=== PATIENT | male | born 1965 | race Caucasian/White ===

== ENCOUNTER 2019-12-15 11:00 | Inpatient (IN) ==
[2019-12-15] MEDS ORDERED: ASPIRIN PO ONE (11:12)
[2019-12-15] MEDS ORDERED: ASPIRIN PR ONE (11:12)
[2019-12-15] MEDS ORDERED: NS 1,000 ML IV ONE ×2 (11:24→13:04)
[2019-12-15] MEDS ORDERED: ZOFRAN IV ONE (11:24)
[2019-12-15] MEDS ORDERED: ATIVAN IV ONE (11:30)
[2019-12-15 11:36] LABS: BASO# 0.02 X1000 (0.0-0.2); BASO% 0.2 % (0.0-0.8); EOS# 0.13 X1000 (0.0-0.7); EOS% 1.2 % (0.0-10.0); HEMATOCRIT 43.3 % (42.0-52.0); HEMOGLOBIN 15.3 g/dL (14.0-18.0); IMM GRAN# 0.01 X1000 (0.0-0.04); IMM GRAN% 0.1 % (0.0-0.5); LYMPH# 1.73 X1000 (1.2-3.4); LYMPH% 16.1 % (20.5-51.1); MCH 29.1 PG (27-31); MCHC 35.3 g/dL (33-37); MCV 82.3 FL (81-99); MONO# 0.76 X1000 (0.11-0.59); MONO% 7.1 % (1.7-9.3); MPV 9.8 FL (7.4-10.4); NEUT# 8.12 X1000 (1.4-6.5); NEUT% 75.3 % (42.2-75.2); PLT 289 X1000 (130-400); RBC 5.26 XMIL (4.7-6.1); RDW 12.8 % (11.5-14.5); WBC 10.77 X1000 (4.8-10.8)
[2019-12-15 11:58] LABS: INR 1.2; PROTIME 15.8 Seconds (11.0-16.0)
[2019-12-15 11:59] LABS: PTT 32.3 Seconds (22.3-41.8)
[2019-12-15 12:07] LABS: AGAP 12; ALBUMIN 4.3 g/dL (3.5-5.0); ALKALINE PHOSPHATASE 61 U/L (32-122); BUN 13 mg/dL (8-22); CHLORIDE 106 mmol/L (98-107); CK PROFILE 72 U/L (24-204); COSMO 285; CREATININE 0.9 mg/dL (0.7-1.2); ESTIMATED GFR > 60; GLUCOSE 161 mg/dL (70-104); GOT 13 U/L (10-34); GPT 23 U/L (10-44); POTASSIUM 4.2 mmol/L (3.5-5.1); SODIUM 141 mmol/L (136-145); TCO2 22 mmol/L (25-35); TOTAL PROTEIN 6.2 g/dL (6.3-8.3)
--- NOTE | 2019-12-15 12:16 | Diag Imaging Result Doc PS360 ---
EXAM: CHEST-PORTABLE HISTORY: CP TECHNIQUE: Single view COMPARISON: None. FINDINGS: Poor inspiratory effort. The heart is not enlarged. The vessels are not distended. There are no infiltrates. No effusion identified. IMPRESSION: Negative exam. Electronically signed by Rosendo An 12/15/2019 12:13 PM
[2019-12-15] MEDS ORDERED: PROTONIX IV ONE (12:18)
[2019-12-15] MEDS ORDERED: LOVENOX 1 MG/KG SUBQ ONE (12:18)
[2019-12-15] MEDS ORDERED: LOPRESSOR IV ONE ×2 (12:18→13:04)
[2019-12-15] MEDS ORDERED: PEPCID IV ONE (12:18)
[2019-12-15] MEDS ORDERED: SODIUM CHLORIDE 0.9% INJ ONE ×2 (12:18)
[2019-12-15] MEDS ORDERED: LOVENOX SUBQ ONE (13:25)
--- NOTE | 2019-12-15 13:34 | EKG Report ---
Test Performed on : 12/15/2019 11:06:39 AM Test Reason : A-Fib RVR Blood Pressure : / mmHG Vent. Rate : 161 BPM Atrial Rate : 101 BPM P-R Int : 000 ms QRS Dur : 088 ms QT Int : 284 ms P-R-T Axes : 000 -24 094 degrees QTc Int : 464 ms Atrial fibrillation. with rapid ventricular response. Abnormal QRS-T angle, consider primary T wave abnormality Abnormal ECG No previous ECGs available Unconfirmed Result
[2019-12-15] MEDS ORDERED: CORDARONE 360 MG/D5W 360 MG/200 ML IV.SOLN IV ONE (13:53)
[2019-12-15] MEDS ORDERED: ZOFRAN IV PRN (13:55)
[2019-12-15] MEDS ORDERED: NEO-SYNEPHRINE 50 MG in NS 250 ML IV SCH (14:00)
--- NOTE | 2019-12-15 15:30 | HISTORY AND PHYSICAL ---
CHIEF COMPLAINT: Chest pain and "feeling bad all over." HISTORY OF PRESENT ILLNESS: This is a 54-year-old gentleman with a history of diabetes mellitus and hypertension who presented to the emergency room complaining of chest pain that started about 3 a.m. He states that when he woke up, he just was not feeling right. He did have a pain in the left side of his chest. He develops shortness of breath with any activity as well as chest fullness, prompting his presentation to the emergency room. He was found to be in atrial fibrillation with rapid ventricular response with heart rates in the 160s and blood pressures that were initially in the 120s but did drop to the 80s to 90s. Mr. Hernandez does have a history of CVA. He states he has no residual from this. He denies a prior diagnosis of atrial fibrillation, but on questioning the patient, he does state that he has had episodes just like his presentation today, where he would be very weak, very short of breath with any exertion. They lasted varying amounts of time. He has never sought help during this time. PAST MEDICAL HISTORY: Diabetes mellitus, hypertension, CVA, status post 5 years ago. SOCIAL HISTORY: He denies any alcohol, tobacco, or illicit drug use. ALLERGIES: No known drug allergies. HOME MEDICATIONS: A list will be obtained by the nursing staff and once verified will review and restart as appropriate. REVIEW OF SYSTEMS: Discussed with patient with pertinent positives stated in the HPI. He denied any syncope or dizziness, any palpitations any productive cough, any fevers or chills, any nausea, vomiting, diarrhea, constipation, any black or bloody vomitus or stools, any hematuria, dysuria, frequency or urgency. PHYSICAL EXAMINATION: GENERAL: This is a 54-year-old gentleman who is lying on the stretcher in the emergency room in no distress. VITAL SIGNS: Blood pressure is 86/63 with a heart rate of 140, respirations are 20, temperature is 97.1 degrees with O2 saturations 98 to 100 percent. EYES: Pupils are equal, round, react to light. EOMs are intact. Sclerae anicteric. HEENT: Head is normocephalic, atraumatic. Mucous membranes are moist. NECK: Supple with trachea midline. CARDIOVASCULAR: Irregularly irregular rate and rhythm. S1 and S2 appreciated. He has no lower extremity edema. Peripheral pulses are palpable x4 extremities. Calves are nontender bilateral. PULMONARY: Breath sounds are clear with no increased work of breathing noted. Chest rises and falls symmetrically with respiration. Chest wall is nontender to palpation. GASTROINTESTINAL: Abdomen is soft, nontender, nondistended with bowel sounds in all 4 quadrants. NEUROLOGIC: He is alert and oriented x3. SKIN: Warm and dry. LABORATORY DATA: 1. WBC is 10.7 with hemoglobin 15.3, hematocrit 43.3, and platelets of 289,000. INR is 1.20. Sodium 141, potassium 4.2, BUN 13, creatinine 0.9 with a glucose of 161. Troponin T is 19 with a total CPK of 72. ProBNP is 1083. 2. Chest x-ray reveals negative exam. Heart is not enlarged. Vessels are not distended. There are no infiltrates. No effusion identified. 3. EKG reveals atrial fibrillation at a rate of 161. ASSESSMENT AND PLAN: 1. Atrial fibrillation with rapid ventricular response. 2. Hypotension. 3. History of hypertension. 4. History of diabetes mellitus. PLAN: The patient will be admitted and transferred to [facility] ICU. He will be placed on telemetry. The patient was discussed with Dr. Xander Valle in Cardiology, who recommended Lopressor 5 mg IV slowly as needed to control rate. Davi-Synephrine if pressors are needed. Lovenox a mg per kg b.i.d. continue to trend troponin and cardiac profile. CBC and CMP in the morning. Dr. Valle will be consulted, pattern blood glucose with sliding scale insulin. stat echocardiogram. Further treatments pending hospital course. Plan was discussed with Dr. Ceron. Dictated by SHON Landa for Veto Ceron MD cc: SHON Landa MD [facility]
--- NOTE | 2019-12-15 15:50 | ECHO REPORT ---
ORDER DATE: 12/15/2019 INTERPRETING PHYSICIAN: Dr. Joe Mcclain ECHOCARDIOGRAPHIC MEASUREMENTS: 1. Interventricular septum: 1.2 cm. 2. Left ventricular posterior wall: 1.2 cm. 3. Diastolic diameter: 4.5 cm. 4. Left atrium: 3.9 cm. 5. Aortic root: 3.5 cm. SUMMARY OF THE 2-DIMENSIONAL IMAGIN. Aortic valve leaflets were trileaflet. 2. Atrial fibrillation was noted. 3. Pulmonic valve was normal. There is mild pulmonary regurgitation. 4. Tricuspid valve was normal. 5. There is left atrial enlargement. 6. Mitral valve was normal. There is mild mitral regurgitation. 7. Mild tricuspid regurgitation. Peak velocity across the tricuspid valve was 2.1 m/sec. 8. Pulmonary artery systolic pressure of 28 mmHg. 9. Peak velocity across the aortic valve less than 2 m/sec. There is no aortic stenosis or regurgitation. 10. Normal left ventricular cavity size. Estimated ejection fraction of 55% to 60%. 11. Atrial fibrillation with tachycardia was noted. Heart rate varying from 90 to 130 beats per minute in atrial fibrillation. 12. There is no pericardial effusion. cc: MD Winter Khan CRNP
[2019-12-15] MEDS: HUMALOG (PARKWAY) SUBQ SCH ×2 (16:00→21:34)
[2019-12-15] MEDS ORDERED: NEO-SYNEPHRINE 50 MG in NS 250 ML IV PRN (16:40)
[2019-12-15] MEDS ORDERED: LOPRESSOR IV PRN (17:46)
[2019-12-15] MEDS: LOPRESSOR PO SCH (18:16)
[2019-12-15] MEDS ORDERED: LANOXIN IV ONE ×2 (18:36→21:30)
[2019-12-15] MEDS ORDERED: CORDARONE 540 MG in D5W 289.2 ML IV ONE (19:53)
--- NOTE | 2019-12-15 20:33 | HISTORY AND PHYSICAL ---
HISTORY OF PRESENT ILLNESS: Patient presented to the hospital with palpitations. Notes that it started sometime yesterday and he finally came to the ER today. He was noted to have heart rates in the 150s and 160s due to atrial fibrillation with rapid ventricular response. Blood pressures also were low in the 80s in and low 90s systolic. He has a history of diabetes, hypertension, CVA 5 to 6 years ago. We are going to admit him to the hospital, consult Cardiology, and attempt to rate control. cc: Veto Ceron MD
[2019-12-15] MEDS ORDERED: LOVENOX SUBQ SCH (21:00)
[2019-12-15] MEDS: LOVENOX SUBQ SCH (21:16)
[2019-12-16] MEDS: LOPRESSOR PO SCH ×3 (01:24→15:20)
[2019-12-16] MEDS: HUMALOG (PARKWAY) SUBQ SCH ×4 (07:28→20:33)
[2019-12-16] MEDS: PRILOSEC PO SCH (07:28)
[2019-12-16] MEDS ORDERED: MAGNESIUM SULFATE 2 GM/S.W.I. 2 GM/50 ML IVPB IV ONE (08:00)
[2019-12-16] MEDS: LOVENOX SUBQ SCH (08:30)
--- NOTE | 2019-12-16 08:30 | EKG Report ---
Test Performed on : 12/16/2019 08:16:19 AM Test Reason : Follow up heart rhyth, Blood Pressure : / mmHG Vent. Rate : 127 BPM Atrial Rate : 108 BPM P-R Int : 000 ms QRS Dur : 090 ms QT Int : 336 ms P-R-T Axes : 000 -29 002 degrees QTc Int : 488 ms Atrial fibrillation. with rapid ventricular response. Inferior infarct , age undetermined Abnormal ECG When compared with ECG of 15-DEC-2019 11:06, (Unconfirmed) Nonspecific T wave abnormality no longer evident in Lateral leads Confirmed by Wilbur KOLB, MSolomon Pool ([id number]) on 12/17/2019 4:34:36 PM
[2019-12-16 08:31] LABS: BASO# 0.02 X1000 (0.0-0.2); BASO% 0.2 % (0.0-0.8); EOS# 0.13 X1000 (0.0-0.7); EOS% 1.3 % (0.0-10.0); HEMATOCRIT 42.6 % (42.0-52.0); HEMOGLOBIN 14.8 g/dL (14.0-18.0); LYMPH% 18.5 % (20.5-51.1); MCH 29.7 PG (27-31); MCHC 34.7 g/dL (33-37); MCV 85.5 FL (81-99); MONO# 0.65 X1000 (0.11-0.59); MONO% 6.7 % (1.7-9.3); MPV 9.9 FL (7.4-10.4); NEUT# 7.14 X1000 (1.4-6.5); NEUT% 73.3 % (42.2-75.2); PLT 226 X1000 (130-400); RBC 4.98 XMIL (4.7-6.1); RDW 13.3 % (11.5-14.5); WBC 9.74 X1000 (4.8-10.8)
[2019-12-16 08:32] LABS: AGAP 10; ALB/GLOB RATIO 2.4; ALBUMIN 3.9 g/dL (3.5-5.0); ALKALINE PHOSPHATASE 59 U/L (32-122); BUN 14 mg/dL (8-22); CALCIUM 8.4 mg/dL (8.8-10.2); CHLORIDE 107 mmol/L (98-107); COSMO 287; ESTIMATED GFR > 60; GLUCOSE 119 mg/dL (70-104); GOT 12 U/L (10-34); GPT 24 U/L (10-44); POTASSIUM 4.2 mmol/L (3.5-5.1); SODIUM 143 mmol/L (136-145); TCO2 26 mmol/L (25-35); TOTAL BILIRUBIN 0.68 mg/dL (0.20-1.00); TOTAL PROTEIN 5.5 g/dL (6.3-8.3)
--- NOTE | 2019-12-16 10:00 | PROGRESS NOTE ---
DATE: 12/16/2019 INTERVAL HISTORY: Mr. Hernandez was admitted and was transferred from [facility] for management of atrial fibrillation. Overnight, he continued to have episodes of tachycardia and received intravenous digoxin. SUBJECTIVE: Mr. Hernandez is feeling better and he wanted to go home. I explained to him about pathophysiology of atrial fibrillation, symptoms, risk associated, as well as complication and history of stroke, and he wishes to stay back. Currently he denies any chest pain. He is not short of breath. He denies any palpitation. VITALS: On monitor his heart rate jumps between 90s to 150s, temperature 97.5 degrees, pulse 114, respiratory 17, blood pressure 128/98, saturating 97% on room air. PHYSICAL EXAMINATION: General: Not in acute distress. Oral cavity: Moist. Lungs: Air entry bilaterally equal. No wheeze, rhonchi, crackles. Heart: S1, S2 normal. No murmur or gallop. Abdomen: Soft, nontender. Neck: No jugular venous distention. Lower extremities: No lower extremity edema. Neurologic: He was alert and oriented x3. His strength appears 5/5 in both upper and lower extremities. No facial droop. LABS: Hemoglobin of 14.8, platelet of 226. BUN of 14, creatinine 1, blood glucose 105. His magnesium yesterday was 1.7. X-RAYS: EKG had atrial fibrillation with rapid ventricular response. ASSESSMENT AND PLAN: 1. Atrial fibrillation with rapid ventricular response. Echocardiogram did not have any mitral stenosis and normal ejection fraction. Continue oral metoprolol. Appreciate Cardiology recommendation about further management. I will also continue him on enoxaparin therapeutic dose for primary cerebrovascular accident prophylaxis. His CHADS2 Vasc score has been at least 4. I will keep him on nothing by mouth until further cardiovascular plans have been made. 2. Hypotension, likely due to atrial fibrillation at [facility], now resolved. I will stop the order for phenylephrine. He never required it. 3. Others: History of essential hypertension, history of insulin-dependent diabetes mellitus, history of hyperlipidemia. I will start him on atorvastatin. I will start him on his home canagliflozin and continue him on sliding scale insulin. DISPOSITION: I will monitor patient inside the ICU as I await further Cardiology recommendation. Plan of care discussed with the patient. His questions have been satisfactorily answered. cc: Juanpablo Quintanilla MD
--- NOTE | 2019-12-16 12:56 | CARDIOLOGY CONSULTATION ---
DATE: 12/16/2019 CHIEF COMPLAINT ON PRESENTATION: Chest pain, weakness, heart racing. HISTORY OF PRESENT ILLNESS: Mr. Hernandez is a 54-year-old, white male with a history of diabetes, hypertension, and previous CVA around 4 to 5 years ago. He had the onset of symptoms yesterday at work while walking around. He subsequently presented to the ER and was found to be in rapid atrial fibrillation. He has no history of this before, but has noted some heart racing occurring today. In addition, the patient noted in the last 48 to 72 hours having occasional episodes of rapid heart rates. He denies any bleeding issues. PAST MEDICAL HISTORY: Significant for: 1. Diabetes. 2. Hypertension. 3. Hyperlipidemia. 4. CVA occurring around 4 to 5 years ago. SOCIAL HISTORY: He does not smoke. He works at a local factory. FAMILY HISTORY: Significant for hypertension. REVIEW OF SYSTEMS: A 10-system review of systems is negative, except for those things mentioned in the HPI. PHYSICAL EXAMINATION: Vital Signs: The patient is afebrile. His heart rates are anywhere from the 90s to the 120s. His blood pressure is 131/105. General: He is in no acute distress. HEENT: Oropharynx is moist. Normal dentition. Eye examination shows pink conjunctivae, white sclerae. Neck: No obvious thyromegaly or thyroid tenderness. Cardiovascular: He sounds to be in an irregularly irregular rhythm. It is mildly tachycardic. He has no lower extremity edema. He has a normal JVP. Chest: Sounds clear bilaterally. He has no increased work of breathing. Abdomen: Soft, nontender, nondistended. He has no obvious organomegaly. Skin: Warm and dry throughout without any rashes. Neurological: He is moving all extremities well. He has no lateralizing deficits. PERTINENT DATA: His EKG on 12/15/2019 at 11:06 shows rapid atrial fibrillation, rate of 161 beats per minute. He has no ischemic changes. His subsequent EKG occurring on 12/16/2019 shows rapid atrial fibrillation, 127 beats per minute, nonspecific ST-T changes. He had an echocardiogram performed yesterday that showed a preserved ejection fraction, no significant wall motion abnormalities, no significant valvular defects. His chest x-ray demonstrates unremarkable exam. His lab data shows a white count of 9.7, hematocrit of 42, platelet count of 226,000. His sodium is 143, potassium 4.2, BUN 14, creatinine is 1. His proBNP is 1000. His high-sensitivity troponins were 17 and 19 respectively. His magnesium level was 1.7 yesterday. ASSESSMENT: Mr. Hernandez is a 54-year-old gentleman with new-onset atrial fibrillation. PLAN: He has a significant elevation in his CHADS score of 4 for hypertension, diabetes, and stroke. I will switch him over to Eliquis 5 b.i.d. Continue him on rate control. Will plan for RICARDO cardioversion in the morning, and he can likely be discharged after that time period. cc: Hood Sarah MD
[2019-12-16] MEDS: LOPRESSOR IV PRN ×2 (13:24→17:40)
[2019-12-16] MEDS: TYLENOL PO PRN (16:02)
[2019-12-16] MEDS: ELIQUIS PO SCH (20:54)
[2019-12-16] MEDS: MULTAQ PO SCH (20:54)
[2019-12-16] MEDS ORDERED: LIPITOR PO SCH (21:00)
[2019-12-16] MEDS ORDERED: INVOKANA PO SCH (21:00)
[2019-12-17] MEDS: LOPRESSOR PO SCH ×2 (03:26→08:28)
[2019-12-17] MEDS: HUMALOG (PARKWAY) SUBQ SCH (06:32)
[2019-12-17] MEDS: PRILOSEC PO SCH (06:33)
[2019-12-17 06:55] LABS: AGAP 12; BUN 12 mg/dL (8-22); CALCIUM 8.6 mg/dL (8.8-10.2); CHLORIDE 104 mmol/L (98-107); COSMO 281; CREATININE 0.9 mg/dL (0.7-1.2); ESTIMATED GFR > 60; GLUCOSE 106 mg/dL (70-104); MAGNESIUM 1.8 mg/dL (1.5-2.7); POTASSIUM 3.8 mmol/L (3.5-5.1); SODIUM 141 mmol/L (136-145); TCO2 25 mmol/L (25-35)
--- NOTE | 2019-12-17 07:51 | EKG Report ---
Test Performed on : 12/17/2019 07:03:19 AM Test Reason : afib Blood Pressure : / mmHG Vent. Rate : 081 BPM Atrial Rate : 081 BPM P-R Int : 158 ms QRS Dur : 108 ms QT Int : 394 ms P-R-T Axes : 048 -27 019 degrees QTc Int : 457 ms Normal sinus rhythm. Cannot rule out Anterior infarct , age undetermined Abnormal ECG When compared with ECG of 16-DEC-2019 08:16, (Unconfirmed) Sinus rhythm. has replaced Atrial fibrillation. Vent. rate has decreased BY 46 BPM Confirmed by Cristina Bowles MD ([id number]) on 12/17/2019 4:35:44 PM
[2019-12-17] MEDS ORDERED: XYLOCAINE 2% VISCOUS ONE (08:15)
[2019-12-17] MEDS ORDERED: XYLOCAINE 4% TOPICAL SOLUTION ONE (08:16)
[2019-12-17] MEDS: MULTAQ PO SCH (08:29)
[2019-12-17] MEDS: ELIQUIS PO SCH (08:29)
[2019-12-17] MEDS: TYLENOL PO PRN (08:29)
[2019-12-17 10:12] VITALS: BP 147/96
--- NOTE | 2019-12-17 11:50 | EKG Report ---
Test Performed on : 12/17/2019 09:10:00 AM Test Reason : ICU. No order in [place] Blood Pressure : / mmHG Vent. Rate : 068 BPM Atrial Rate : 068 BPM P-R Int : 160 ms QRS Dur : 108 ms QT Int : 412 ms P-R-T Axes : 027 -29 001 degrees QTc Int : 438 ms Normal sinus rhythm. Incomplete right bundle branch block Borderline ECG When compared with ECG of 17-DEC-2019 07:03, (Unconfirmed) Incomplete right bundle branch block is now present Confirmed by Cristina Bowles MD ([id number]) on 12/17/2019 4:36:03 PM
--- NOTE | 2019-12-19 14:32 | DISCHARGE SUMMARY ---
ADMISSION DATE: 12/15/2019 DISCHARGE DATE: 12/17/2019 CONSULTS: Cardiology, Dr. Sarah. PERTINENT STUDIES: Chest x-ray: No acute process. Echocardiogram: Mild pulmonary regurgitation, mildly elevated pulmonary pressure at 28, normal EF at 55 to 60, atrial fibrillation with tachycardia noted during the study. High-sensitivity troponin negative x2. BNP 1083. DISCHARGE DIAGNOSES: 1. Atrial fibrillation with rapid ventricular response. 2. Hypotension. 3. History of hypertension. 4. Diabetes. 5. Hyperlipidemia. 6. Chest pain. HOSPITAL COURSE: The patient came into the ER complaining of chest pain that had started in the middle of the night. Had shortness of breath with any activity. On initial presentation, he was found to be in atrial fibrillation with RVR with some hypotension noted with blood pressure as low as 88/66. He was transferred from [place], where he presented to the [facility]. He was given Lopressor, and then started on amiodarone. Pressors were ordered, but the patient's blood pressure improved with the control of his atrial fibrillation, and pressors were not required. Cardiology was involved. He was started on anticoagulation with Eliquis. He was transitioned from amiodarone to oral Multaq and Toprol-XL. Cardiology initially planned to cardiovert him, but he spontaneously converted back to normal sinus rhythm and remained. With control of his atrial fibrillation, all his symptoms resolved. Troponins remained negative. 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 DISCHARGE VITAL SIGNS: Temperature 97.9 degrees, pulse 73, respirations 13, blood pressure 147/96, O2 saturation 92% on room air. DISCHARGE DIET: Diabetic, low salt. DISCHARGE MEDICATIONS: Invokana as previously prescribed, atorvastatin 40 mg p.o. at bedtime, aspirin 81 mg daily, Eliquis 5 mg p.o. b.i.d., Multaq 400 mg p.o. b.i.d., Toprol-XL 100 mg p.o. daily. FOLLOWUP AND PLAN: Patient discharging home on medications to control his heart rate if he goes back into atrial fibrillation, as well as Eliquis for stroke prophylaxis. Patient to follow up with PCP and Cardiology. TIME SPENT: Greater than 30 minutes were spent arranging discharge and counseling the patient.
== END 2019-12-17 10:43 | disposition home or self-care (01) | DRG 310 ==
LOC: P.ED 11:00 → SUATTDRO 11:01 → P.EDIPHOLD 15:03
PROVIDERS: ATTEND Internal Medicine